=== PATIENT | female | born 1990 ===

== ENCOUNTER 2017-01-08 14:26 | Emergency (ER) | payer MEDICAID, OTHER ==
[2017-01-08 15:16] VITALS: BMI 35.5
[2017-01-08 15:37] LABS: RBC URINE 1 /hpf (0-3); URINE BILIRUBIN NEGATIVE (NEGATIVE); URINE BLOOD NEGATIVE (NEGATIVE); URINE COLOR Yellow (YELLOW); URINE GLUCOSE (UA) NORMAL (Normal); URINE KETONE NEGATIVE (NEGATIVE); URINE LEUKOCYTE ESTERASE NEG Leu/uL (Negative); URINE PROTEIN NEGATIVE (NEGATIVE); URINE UROBILINOGEN NORMAL mg/dL (0.2-1.0); WBC URINE 2 /hpf (0-5)
--- NOTE | 2017-01-08 15:51 | OBHP ---
Datetime: 01/08/2017 15:47 IP Adm Impression: , intrauterine IP Admit Plan: Discharge home Admit Comment, IP Provider: at 27+weeks came with c/o ctxs started at work every 30 min for 1 m in, no ctxs now, no vb, lof,+fm. no dysuria. obhx 1 x pmh de med pnv all nkda psh de soch den ve closed ua neg toco no ctxs a/p at 27weeks r/o ctxs dc home ptl given po hyrtion f/u in clinic Pelvic Type - PN: Adequate Extremities - PN: Normal Abdomen - PN: Normal Back - PN: Normal Breast - PN: Normal Lungs - PN: Normal Heart - PN: Normal Thyroid - PN: Normal Neurologic - PN: Normal HEENT - PN: Normal General - PN: Normal FHR - Baseline A Provider: 130 Contraction Comments Provider: none Comments, ACOG Physical Exam: gravid,non tender ext no edema,no calf ten EGA AdmitDate IP: 27.2 Vital Signs Provider: Reviewed; Within Normal Limits IP Chief Complaint: Uterine contractions NICHD Variability Prov Fetus A: Moderate 6-25bpm NICHD Accel Fetus A IP Provider: 10X10 FHR Category Provider Fetus A: Category I Dilatation, Provider: 0 Effacement, Provider: 0 Station, Provider: -3 Genitourinary Exam: Normal DTRs - PN: Normal
--- NOTE | 2017-01-08 15:56 | OBDCSUM ---
Datetime: 01/08/2017 15:50 Discharged to, Provider: Home Follow up at, Provider: Er[facility] Disch Instr Activity: Normal activity Disch Instr Diet: Regular Discharge Time: 01/08/2017 15:52 Follow up in weeks, Provider: clinic Disch Activity Restrictions: No exercising Discharge Comment, Provider: dc home ptl given po hyrtion f/u in clinic Discharge Diagnosis Prov Other: 27wee nst
[2017-01-08 22:23] VITALS: BP 123/59; PULSE 96; RESP 18; TEMP 98.5; O2SAT 99
== END 2017-01-08 15:57 | disposition home or self-care (01) ==
LOC: C.EROB 14:26
DX: O47.02 False labor before 37 completed weeks of gestation, second trimester (principal); Z3A.27 27 weeks gestation of pregnancy

== ENCOUNTER 2017-01-22 07:17 | Emergency (ER) | payer OTHER ==
[2017-01-22] MEDS ORDERED: Dextrose 5%/Lactated Ringer's 1,000 ML IV SCH (07:45)
[2017-01-22 09:20] LABS: BASO % 0.3 % (0.0-2.0); EOS % 0.2 % (0.0-4.0); HEMATOCRIT 34.7 % (34.0-47.0); LYMPH # 0.7 K/uL (1.0-4.3); LYMPH % 4.2 % (20.0-40.0); MEAN CELL VOLUME 93.5 fL (81.0-99.0); MEAN CORPUSCULAR HEMOGLOBIN 31.3 pg (27.0-31.0); MEAN CORPUSCULAR HGB CONC 33.5 g/dL (33.0-37.0); MEAN PLATELET VOLUME 8.6 fL (7.2-11.7); MONO # 0.5 K/uL (0.0-0.8); MONO % 3.1 % (0.0-10.0); PLATELET COUNT 326 K/uL (130-400); WHITE BLOOD COUNT 17.6 K/uL (4.8-10.8)
[2017-01-22 09:25] LABS: RBC URINE 4 /hpf (0-3); URINE BACTERIA RARE (<OCC); URINE BILIRUBIN NEGATIVE (NEGATIVE); URINE BLOOD NEGATIVE (NEGATIVE); URINE COLOR Amber (YELLOW); URINE GLUCOSE (UA) NORMAL (Normal); URINE KETONE 2+ mg/dL (NEGATIVE); URINE LEUKOCYTE ESTERASE TRACE Leu/uL (Negative); URINE PROTEIN 1+ mg/dL (NEGATIVE); URINE UROBILINOGEN NORMAL mg/dL (0.2-1.0); WBC URINE 5 /hpf (0-5)
[2017-01-22 09:30] LABS: CHLORIDE 104 mmol/L (98-107); SODIUM 140 mmol/L (132-148)
[2017-01-22 09:32] LABS: AMYLASE 62 U/L (30-110); GFR AFRICAN-AMERICAN > 60
[2017-01-22 09:33] LABS: ALB/GLOB RATIO 0.9 (1.0-2.1); ALKALINE PHOSPHATASE 137 U/L (38-126); ALT/SGPT 70 U/L (9-52); AST/SGOT 39 U/L (14-36); BILIRUBIN,TOTAL 0.9 mg/dL (0.2-1.3); BLOOD UREA NITROGEN 6 mg/dL (7-17); CALCIUM 9.2 mg/dl (8.6-10.4); CARBON DIOXIDE 19 mmol/L (22-30); GLUCOSE,RANDOM 92 mg/dL (65-105)
[2017-01-22 09:35] LABS: POTASSIUM 3.6 mmol/L (3.6-5.2)
[2017-01-22 09:52] LABS: NEUTROPHIL 88 % (50-75); TOTAL CELLS COUNTED 100
[2017-01-22 16:26] VITALS: BP 120/66; PULSE 101; RESP 18; TEMP 99.7
--- NOTE | 2017-01-23 01:02 | OBHP ---
Datetime: 01/22/2017 09:56 IP Adm Impression: , intrauterine ; No Active Labor IP Chief Complaint Other: nausea and vomiting IP Admit Plan: Observation/Evaluation; Discharge home Admit Comment, IP Provider: Patient is a 26 y.o. , LMP unsure, AMBER 04/07/17, EGA 29w 2d, c/o [place] vomiting since 0030 hours, 24 hours. Ate burkinan food the night before. (+) AFM; denies LOF, VB , Ctx/abdominal pain. issues: [facility] - no issues P Ob: 2010, x 1, female, 6lb 14oz, [facility] 2013, CS x 1, male, 8lb 13oz, [facility]; no GDM; no complications. 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 Age 18, (+) chlamydia PMH: Borderline HTN - never on meds PSH: C/S Allergies: doxycycline = rash Meds: PNV Soc Hx: former tobacco use: 1 pack lasted 4 days, on and off [place]; quit a few years ago - her daughter asked her to. Denies illicit drug or EtOH use. Lives with her 2 childre n; has a roomate. FOB not involved. Fam Hx: Mother - homicide. Father alive 48 y.o. no med issue. (+) fam h/o Breast cance r/ HTN P.E.: as above. Mildy obese in obvious discomfort. Awake, alert, oriented to time, person and pl hoang. Pleasant and cooperative Assessment: 26 y.o. P2, 29w 2d, acute gastroenteritis from food ingestion. Patient states shehas eaten from this etablishment "all the time"; but it was much later at night than her usual. Categor y 1 tracing. Clinically stble. Plan: 1) IVFs: D5LR 2) CBC, comp, lipase, amylase, U/A, UDS 3) zofran 4) Observe Addendum: after approximately 90 minutes of observation, and after receiving xofran, no vomiting a nd feels a bit better. Labs reviewed - noted for elevated WBC; AST/ALT - all of which represent acute phsae responses. Assessment: 26 y.o. P2, 29w 2d, acute gastroenteritis from food ingestion - no further vomiting. Patient counseled on modified BRAT diet; drink gatorade and /or coconut water; and to avoid greasy, f ried foods; outside cooked foods. Clinically stable. Plan: 1) discharge home 2) zofran 4 mg p.o. every 8 hours, PRN 3) keep scheduled appointment in approximately 2 weeks Pelvic Type - PN: Not Done Extremities - PN: Normal Abdomen - PN: Normal Back - PN: Normal Breast - PN: Not Done Lungs - PN: Normal Heart - PN: Normal Thyroid - PN: Not Done Neurologic - PN: Normal HEENT - PN: Normal General - PN: Normal FHR - Baseline A Provider: 150 Contraction Comments Provider: none Comments, ACOG Physical Exam: Abdomen: Gravid. Soft. Non tender in all quadrants All other systems reviewed; as per HPI Gestation - Est Wks by US: 29w 2d EGA AdmitDate IP: 29.2 IP Chief Complaint: Other NICHD Variability Prov Fetus A: Moderate 6-25bpm NICHD Accel Fetus A IP Provider: 15X15 FHR Category Provider Fetus A: Category I NICHD Decel Fetus A IP Provider: None Dilatation, Provider: deferred Genitourinary Exam: Not Done DTRs - PN: Not Done
== END 2017-01-22 09:42 | disposition home or self-care (01) ==
LOC: C.EROB 07:17
DX: O26.893 Other specified pregnancy related conditions, third trimester (principal); K52.9 Noninfective gastroenteritis and colitis, unspecified; Z3A.29 29 weeks gestation of pregnancy
CPT/HCPCS: 80053; 80324; 80345; 80346; 80349; 80353; 80358; 80361; 81001; 82150; 83690; 83992; 85025; 96374; 99282; J2405; J7120

== ENCOUNTER 2017-03-14 15:21 | Emergency (ER) | payer OTHER ==
[2017-03-14] MEDS ORDERED: Lactated Ringer's 1,000 ML IV ONE (15:36)
[2017-03-14 16:01] LABS: BASO % 0.2 % (0.0-2.0); EOS % 0.3 % (0.0-4.0); HEMATOCRIT 30.9 % (34.0-47.0); LYMPH # 1.1 K/uL (1.0-4.3); LYMPH % 6.6 % (20.0-40.0); MEAN CORPUSCULAR HEMOGLOBIN 29.3 pg (27.0-31.0); MEAN CORPUSCULAR HGB CONC 33.5 g/dL (33.0-37.0); MONO % 6.1 % (0.0-10.0); PLATELET COUNT 321 K/uL (130-400); RED CELL DISTRIBUTION WIDTH 14.3 % (11.5-14.5); WHITE BLOOD COUNT 16.5 K/uL (4.8-10.8)
[2017-03-14 16:02] LABS: MEAN CELL VOLUME 87.7 fL (81.0-99.0)
[2017-03-14 16:08] LABS: CHLORIDE 100 mmol/L (98-107)
[2017-03-14 16:09] LABS: POTASSIUM 3.8 mmol/L (3.6-5.2); SODIUM 131 mmol/L (132-148)
[2017-03-14 16:11] LABS: ALB/GLOB RATIO 0.9 (1.0-2.1); ALKALINE PHOSPHATASE 199 U/L (38-126); ALT/SGPT 37 U/L (9-52); AST/SGOT 29 U/L (14-36); BILIRUBIN,TOTAL 0.7 mg/dL (0.2-1.3); BLOOD UREA NITROGEN 6 mg/dL (7-17); CARBON DIOXIDE 16 mmol/L (22-30); GFR AFRICAN-AMERICAN > 60; TOTAL PROTEIN 7.4 g/dL (6.3-8.3)
[2017-03-14 16:12] LABS: CALCIUM 9.2 mg/dl (8.6-10.4); GLUCOSE,RANDOM 66 mg/dL (65-105); RBC URINE 1 /hpf (0-3); URINE BACTERIA RARE (<OCC); URINE BILIRUBIN NEGATIVE (NEGATIVE); URINE BLOOD NEGATIVE (NEGATIVE); URINE COLOR Yellow (YELLOW); URINE GLUCOSE (UA) NORMAL (Normal); URINE KETONE TRACE mg/dL (NEGATIVE); URINE LEUKOCYTE ESTERASE 1+ Leu/uL (Negative); URINE PROTEIN NEGATIVE (NEGATIVE); URINE UROBILINOGEN NORMAL mg/dL (0.2-1.0)
[2017-03-14 16:18] LABS: WBC URINE 20 /hpf (0-5)
[2017-03-14 16:42] LABS: EOSINOPHIL 1 % (0-4); LARGE PLATELETS PRESENT; NEUTROPHIL 86 % (50-75); TOTAL CELLS COUNTED 100
[2017-03-14 19:13] LABS: URINE HYALINE CAST >20 /lpf (0-2)
--- NOTE | 2017-03-14 20:47 | OBHP ---
Datetime: 03/14/2017 17:23 IP Adm Impression: , intrauterine IP Chief Complaint Other: body aches IP Admit Plan: Observation/Evaluation; Discharge home Admit Comment, IP Provider: chief compalint-body aches HPI Patient is a 26 y.o. , LMP unsure, AMBER 04/07/17, EGA 36w 4d, c/o body aches since morning .Patient states that she felt body aches and [place] djoint pain when she woke up in the morning tiday.she went to work but the discomfort contnued and sh was feeling weak.She therafter came to hospital from work. issues: [facility] - no issues P Ob: 2010, x 1, female, 6lb 14oz, [facility] 2013, CS x 1, male, 8lb 13oz, [facility]; no GDM; no complications. 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 Age 18, (+) chlamydia PMH: Borderline HTN - never on meds PSH: C/S Allergies: doxycycline = rash Meds: PNV Soc Hx: former tobacco use: 1 pack lasted 4 days, on and off since [place]; quit a few years ago - her daughter asked her to. Denies illicit drug or EtOH use. Lives with her 2 childre n; has a roomate. FOB not involved. Fam Hx: Mother - homicide. Father alive 48 y.o. no med issue. (+) fam h/o Breast cance r/ HTN Exam see exam secton A/P 26 y/o at 36.4 wga with body acehs and joint pain -iv fluids -check labs -flu swab -recheck cervix -tylenol 650mg 8.42 pm UA with LE, wbc, and epithelial cells wbc 16 Flu swab neg for influenza A and B Patient given iv fluids and she feels better patient gievn 2 grams of ampicillin cervix check twice and unchanged also given 1 shot of terbutaline 0.25 mg once. patient feels better and no longer feels pain in her joins or stomack or back Patient discharged home ptl,pprom, bleeding and abruption precautions given Pelvic Type - PN: Adequate Extremities - PN: Normal Abdomen - PN: Normal Back - PN: Normal Breast - PN: Not Done Lungs - PN: Normal Heart - PN: Normal Thyroid - PN: Normal Neurologic - PN: Normal HEENT - PN: Normal General - PN: Normal Contraction Comments Provider: monyt Gestation - Est Wks by US: 36.4 EGA AdmitDate IP: 36.4 Vital Signs Provider: Reviewed; Within Normal Limits IP Chief Complaint: Other FHR Category Provider Fetus A: Category I Dilatation, Provider: 1 Genitourinary Exam: Normal DTRs - PN: Normal
[2017-03-15 01:38] VITALS: BP 112/51; PULSE 137; O2SAT 99
== END 2017-03-14 21:00 | disposition home or self-care (01) ==
LOC: C.EROB 15:21
DX: O26.893 Other specified pregnancy related conditions, third trimester (principal); M25.50 Pain in unspecified joint; Z3A.36 36 weeks gestation of pregnancy
CPT/HCPCS: 80053; 81001; 85025; 87804; 96365; 99282; J0290; J3105; J7050; J7120

== ENCOUNTER 2017-03-30 16:25 | Inpatient (IN) | payer OTHER ==
[2017-03-30] MEDS ORDERED: Lactated Ringer's 1,000 ML IV SCH ×2 (17:00→17:45)
[2017-03-30] MEDS ORDERED: Sodium Citrate/Citric Acid 15 ml Sol PO ONE (17:37)
[2017-03-30] MEDS ORDERED: cefOXitin IV 2 gm in Dextrose 2 GM/50 ML BAG IVPB ONE ×2 (17:37→18:03)
[2017-03-30 17:52] LABS: BASO % 0.2 % (0.0-2.0); EOS # 0.1 K/uL (0.0-0.7); EOS % 0.5 % (0.0-4.0); HEMATOCRIT 30.8 % (34.0-47.0); LYMPH # 2.7 K/uL (1.0-4.3); LYMPH % 16.8 % (20.0-40.0); MEAN CELL VOLUME 86.3 fL (81.0-99.0); MEAN CORPUSCULAR HEMOGLOBIN 28.9 pg (27.0-31.0); MEAN CORPUSCULAR HGB CONC 33.5 g/dL (33.0-37.0); MEAN PLATELET VOLUME 8.1 fL (7.2-11.7); MONO # 1.1 K/uL (0.0-0.8); MONO % 6.8 % (0.0-10.0); NRBC % 0.1 % (0.0-2.0); RED CELL DISTRIBUTION WIDTH 15.3 % (11.5-14.5); WHITE BLOOD COUNT 16.3 K/uL (4.8-10.8)
--- NOTE | 2017-03-30 17:54 | OBADHP ---
Datetime: 03/30/2017 16:52 Admit Comment, IP Provider: Patient is a 27 year old at 38w6d AMBER 04/07/17 presents to L+D fo r contractions that started at 9:30am. Patient states that contractions are regular and have gotten s tronger. Last ate at 10am. Admits to recent intercourse, denies trauma. Endorses +FM, denies LOF, VB. Issues: Previous C/S x 1 UDS + THC and opiates Trichomonas positive - treated OB Hx: 1. 2010 VAVD at term, Female , 6lbs 14oz, no complications 2. 2013 PLTCD 2/2 arrest of descent, Male infant, 8lb 13oz, no complications 3. 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 07/01/16 [place]: 11 x reg x 5 days Hx of Ovarian cysts Denies hx of abnormal paps, uterine fibroids Hx of Chlamydia at age 18, treated Allergies: Doxycycline- rash Medications: PNV Medical Hx: Borderline HTN on no medications Surgical Hx: C/S x 1 Social Hx: Denies alcohol, drug use; former tobacco use: 1 pack lasted 4 days, on and off since af er of daughter; quit a few years ago; works at [employer] [place]; lives with 2 children Family Hx: Mother - at age 24 by homicide; Father - age 48 healthy; Grandmother - breast CA PE: See above A/P: 27 year old at 38w5d, previous C/S presents for uterine contractions 1. Stable, afebrile 2. CEFM and TOCO 3. Admission labs: CBC, T+S, CMP, RPR, UA, HIV 4. Cefoxitin 2gm, bicitra, pepcid 5. Anesthesia notified 6. Plan for OR 7. Discussed with Attending Mariaa Viera DO PGY-1 dr shepherd agrees Comments, ACOG Physical Exam: VSS Gen: AAOx3 Abd: Soft, gravid Ext: +1 pitting edema; no calf tenderness SVE: closed/thick/high EFM: 135, moderate variability, +accels, -decels TOCO: q6min IP Hx Assessment: The History has been Reviewed and is Current IP Chief Complaint: Uterine contractions EGA AdmitDate IP: 38.6 IP Adm Impression: Term, intrauterine IP Admit Plan: Admit to unit; Initiate Section protocol Datetime: 03/14/2017 17:23 IP Chief Complaint Other: body aches Pelvic Type - PN: Adequate Extremities - PN: Normal Abdomen - PN: Normal Back - PN: Normal Breast - PN: Not Done Lungs - PN: Normal Heart - PN: Normal Thyroid - PN: Normal Neurologic - PN: Normal HEENT - PN: Normal General - PN: Normal Contraction Comments Provider: irregula Gestation - Est Wks by US: 36.4 Vital Signs Provider: Reviewed; Within Normal Limits FHR Category Provider Fetus A: Category I Dilatation, Provider: 1 Genitourinary Exam: Normal DTRs - PN: Normal Datetime: 01/22/2017 09:56 FHR - Baseline A Provider: 150 NICHD Variability Prov Fetus A: Moderate 6-25bpm NICHD Accel Fetus A IP Provider: 15X15 NICHD Decel Fetus A IP Provider: None Datetime: 01/08/2017 15:47 Effacement, Provider: 0 Station, Provider: -3
[2017-03-30 18:02] LABS: CHLORIDE 104 mmol/L (98-107)
[2017-03-30 18:03] LABS: POTASSIUM 3.6 mmol/L (3.6-5.2); SODIUM 134 mmol/L (132-148)
[2017-03-30] MEDS ORDERED: Sodium Citrate/Citric Acid 15 ml Sol ONE (18:03)
[2017-03-30] MEDS ORDERED: Oxytocin 10 Units/ml Inj ONE (18:03)
[2017-03-30] MEDS ORDERED: Oxytocin 20 units in LR 2,000 ML IV ONE (18:04)
[2017-03-30 18:05] LABS: ALB/GLOB RATIO 0.8 (1.0-2.1); ALKALINE PHOSPHATASE 227 U/L (38-126); AST/SGOT 37 U/L (14-36); BILIRUBIN,TOTAL 0.4 mg/dL (0.2-1.3); BLOOD UREA NITROGEN 6 mg/dL (7-17); CARBON DIOXIDE 17 mmol/L (22-30); GFR AFRICAN-AMERICAN > 60; GLUCOSE,RANDOM 78 mg/dL (65-105)
[2017-03-30 18:06] LABS: ALT/SGPT 40 U/L (9-52); CALCIUM 9.7 mg/dl (8.6-10.4)
[2017-03-30 18:19] LABS: RBC URINE 1 /hpf (0-3); URINE BACTERIA RARE (<OCC); URINE BILIRUBIN NEGATIVE (NEGATIVE); URINE BLOOD NEGATIVE (NEGATIVE); URINE COLOR Yellow (YELLOW); URINE GLUCOSE (UA) NORMAL (Normal); URINE KETONE NEGATIVE (NEGATIVE); URINE LEUKOCYTE ESTERASE NEG Leu/uL (Negative); URINE PROTEIN NEGATIVE (NEGATIVE); URINE UROBILINOGEN NORMAL mg/dL (0.2-1.0); WBC URINE 2 /hpf (0-5)
[2017-03-30] MEDS ORDERED: Morphine 1 mg/ml preservative-free Inj(Duramorph) ONE (18:30)
[2017-03-30] MEDS ORDERED: ePHEDrine 50 mg/ml Inj ONE (18:30)
--- NOTE | 2017-03-30 19:20 | PCM.SURG1 ---
Surgeon's Initial Post Op Note - Surgeon's Notes Surgeon: dr shepherd Software Specialist: dr daniels/dr major Type of Anesthesia: Spinal Anesthesia Administered By: dr nelson Pre-Operative Diagnosis: 27 yr at 38+weeks previous c/s in pain Operative Findings: see the op[ reprt Post-Operative Diagnosis: same Operation Performed: repeat section Specimen/Specimens Removed: cord gas. cord bloood Estimated Blood Loss: EBL {In ML}: 700 Blood Products Given: N/A Drains Used: No Drains Post-Op Condition: Good Date of Surgery/Procedure: 03/30/17 Time of Surgery/Procedure: 20:00
--- NOTE | 2017-03-30 19:24 | OBDS ---
DELIVERY PERSONNEL Delivery Doctor: Gaviota Alvarado MD Scrub Nurse: Kaylen Salazar OBT Field Service Manager: Shani Rodriguez RN Anesthesiologist: Gaviota Canela MD Resident: Bella Ham DO/Judy Viera Do MATERNAL INFORMATION Delivery Anesthesia: Spinal Estimated Blood Loss (ml): 700 Placenta Cultured: Yes Maternal Complications: None Provider Comments: baby deliverd in [place]. end clean cord gas send no com appgar 02/07 LABOR SUMMARY EDC: 04/07/2017 00:00 No. Babies in Womb: 1 Attempted: No Labor Anesthesia: None LABOR INFORMATION Reason for Induction: Not Applicable Oxytocin: N/A Group B Beta Strep: Negative Antibiotics # of Doses: 1 Antibiotics Time of Last Dose: 1830 Steroids Given: None Reason Steroids Not Administered: Not Applicable MEMBRANES Membranes Rupture Method: Artificial Amniotic Fluid Color: Clear Amniotic Fluid Amount: Moderate Amniotic Fluid Odor: Normal STAGES OF LABOR Stage 3 hrs: 0 Stage 3 min: 1 BABY A INFORMATION Infant Delivery Date/Time: 03/30/2017 18:53 Method of Delivery: Born in Route : No : N/A Forceps: N/A Vacuum Extraction: N/A Shoulder Dystocia : No SHOULDER DYSTOCIA BABY A Delivery Date/Time: 03/30/2017 18:53 PRESENTATION/POSITION BABY A Presentation: Cephalic Cephalic Presentation: Vertex Vertex Position: Left Occipital Anterior Breech Presentation: N/A PLACENTA INFORMATION BABY A Placenta Delivery Time : 03/30/2017 18:54 Placenta Method of Delivery: Expressed Placenta Status: Delivered SCORES BABY A Heart Rate 1 min: >100 bpm Resp Effort 1 min: Good Cry Reflex Irritability 1 min: Cough or Sneeze or Pulls Away Muscle Tone 1 min: Active Motion Color 1 min: Body Trosky, Extremities Blue Resuscitation Effort 1 min: Tactile Stimulation SCORE 1 MIN: 9 Heart Rate 5 min: >100 bpm Resp Effort 5 min: Good Cry Reflex Irritability 5 min: Cough or Sneeze or Pulls Away Muscle Tone 5 min: Active Motion Color 5 min: Body Trosky, Extremities Blue SCORE 5 MIN: 9 INFANT INFORMATION BABY A Gestational Age at Delivery: 38.6 Gestational Status: Term Outcome : Liveborn Condition : Stable Sex: Male IDENTIFICATION/MEDS BABY A ID Band Number: [id number] ID Band Location: Left Leg; Left Arm Sensor Applied: Yes Sensor Number: [id number] Sensor Location : Cord Clamp Vitamin K Given : Not Given Erythromycin Given: Not Given WEIGHT/LENGTH BABY A Birthweight (gms): 3540 Infant Weight (lb): 7 Infant Weight (oz): 13 Infant Length Inches: 19.45 Length cms: 49.4 CORD INFORMATION BABY A No. Cord Vessels: 3 Nuchal Cord : N/A Nuchal Cord Other: N/A True Knot: N/A Cord Blood Taken: Yes Banking/Donate Info: N/A
[2017-03-30] MEDS: Simethicone 80 mg Chewtab PO SCH (23:34)
[2017-03-31 08:44] LABS: HEMATOCRIT 27.5 % (34.0-47.0); MEAN CELL VOLUME 85.8 fL (81.0-99.0); MEAN CORPUSCULAR HEMOGLOBIN 28.3 pg (27.0-31.0); MEAN PLATELET VOLUME 8.3 fL (7.2-11.7); RED CELL DISTRIBUTION WIDTH 15.3 % (11.5-14.5); WHITE BLOOD COUNT 12.7 K/uL (4.8-10.8)
[2017-03-31] MEDS: Oxycodone/Acetaminophen 5/325 mg Tab PO PRN ×3 (10:19→21:50)
[2017-03-31] MEDS: Simethicone 80 mg Chewtab PO SCH ×4 (10:19→21:47)
[2017-03-31] MEDS ORDERED: Bisacodyl 5mg EC Tab PO ONE (18:04)
--- NOTE | 2017-03-31 19:24 | OBPPN ---
Datetime: 03/31/2017 07:46 PP Pain Prov: Within normal limits PP Nausea Prov: Denies PP Flatus Prov: No PP BM Prov: No PP Heart Prov: Normal PP Lungs Prov: Normal PP Abdomen/Uterus Prov: Normal PP CVA Tenderness Prov: Normal PP C/S Incision Prov: Normal PP Progress Prov: Normal PP Impression Prov: Normal progression PP Plan Prov: Continue present management PP Progress Note Prov: Patient seen and examined at bedside. Per nursing no acute events overnight. Patient is doing well, pain is controlled. Lochia is mild. Not yet ambulaing, tao in draining yello w urine. Tolerating ice chips. Breast feeding. Denies headaches, dizziness, cp, palpitations, sob, ur inary symptoms. Denies passing flatus or BM. VS: 130/78 100 98.9 I/O: 1000/600 Gen: AAOx3, NAD CV: RRR Lungs: CTA B/L Abd: Soft, appropriately tender, fundus firm below umbilicus, dressing c/d/i Ext: SCDs in place, no clubbing, cyanosis, edema; no calf tenderness Labs: 16.3>10.3/30.8<407 F/U am CBC O positive Rubella immune A/P: 27 year old at 38w6d S/P RLTCD POD#1 1. Stable, afebrile 2. Pain control - motrin and percocet prn 3. F/U am CBC 4. Remove tao, f/u voiding trial 5. Advance diet as tolerated 6. Encourage ambulation once tao removed, encourage hydration 7. Encourage breast feeding, ISS use 8. SW referral pending - THC use in 9. Male infant - declined circ 10. Continue routine care 11. Plan d/w attending Mariaa Viera DO PGY-1 Patient examined.agre with resident exam, assessment and plan Vital Signs Provider PP: Reviewed
[2017-04-01] MEDS: Oxycodone/Acetaminophen 5/325 mg Tab PO PRN ×4 (08:19→21:57)
[2017-04-01] MEDS: Simethicone 80 mg Chewtab PO SCH ×4 (09:18→21:59)
--- NOTE | 2017-04-01 12:49 | OBPPN ---
Datetime: 04/01/2017 08:05 PP Pain Prov: Within normal limits PP Nausea Prov: Denies PP Flatus Prov: Yes PP BM Prov: No PP Heart Prov: Normal PP Lungs Prov: Normal PP Abdomen/Uterus Prov: Normal PP Lochia Prov: Normal PP Extremities Prov: Normal PP C/S Incision Prov: Normal PP Comments Phys Exam Prov: Abdomen: Soft, appropriately tender, fundus firm below umbilicus, dressi ng C/D/I PP Impression Prov: Normal progression PP Plan Prov: Continue present management PP Progress Note Prov: Patient seen and examined at bedside. Patient reports that she is doing well and pain is well-controlled. Patient reports mild lochia. Patient is ambulating, tolerating diet, uri nating without difficulty and passing flatus. Patient denies nausea, vomiting, fever, chills, bowel m ovement and calf tenderness. Patient is breast feeding. VS: Temp: 97.7, BP: 111/62 and HR: 91 Gen: AAOx3, NAD CV: RRR, Normal S1, S2 Lungs: CTA B/L Abd: Soft, appropriately tender, fundus firm below umbilicus, dressing C/D/I Ext: no clubbing, cyanosis or edema. No calf tenderness Labs: 16.3>10.3/30.8<407 12.7>9.1/27.5<287 O positive Rubella immune A/P: 27 year old at 38w6d S/P RLTCD POD#2 1. Stable, afebrile 2. Pain control - motrin and percocet prn 3. Encourage ambulation and hydration 4. Encourage breast feeding, ISS use 5. Continue routine care 6. Anticipate discharge tomorrow 7. Plans discussed with attending Leticia Ham, PGY-1, DO Dr Alvarado saw the pateint and agrees Vital Signs Provider PP: Reviewed; Within Normal Limits
[2017-04-01] MEDS ORDERED: Bisacodyl 5mg EC Tab PO ONE (20:59)
[2017-04-02] MEDS ORDERED: Oxycodone/Acetaminophen 5/325 mg Tab ONE (06:24)
[2017-04-02] MEDS: Oxycodone/Acetaminophen 5/325 mg Tab PO PRN (06:25)
[2017-04-02 08:55] VITALS: RESP 18
[2017-04-02] MEDS: Simethicone 80 mg Chewtab PO SCH (09:10)
[2017-04-02] MEDS ORDERED: Influenza Vaccine 60 mcg/0.5 mL SYR (4YR UP) IM ONE (10:00)
--- NOTE | 2017-04-02 13:12 | OBPPN ---
Datetime: 04/02/2017 07:08 PP Pain Prov: Within normal limits PP Heart Prov: Normal PP Lungs Prov: Normal PP Abdomen/Uterus Prov: Normal PP Lochia Prov: Normal PP Extremities Prov: Normal PP Comments Phys Exam Prov: Abdomen: Fundus is firm and below the umbilicus PP Impression Prov: Normal progression PP Plan Prov: Discharge PP Progress Note Prov: Patient seen and examined at bedside. Patient reports that she is doing well and pain is well-controlled. Patient reports mild lochia. Patient is ambulating, tolerating diet, uri nating without difficulty and passing flatus. Patient denies nausea, vomiting, fever, chills, bowel m ovement and calf tenderness. Patient is breast feeding. VS: Temp: 98.0, BP: 104/65 and HR: 89 Gen: AAOx3, NAD CV: RRR, Normal S1, S2 Lungs: CTA B/L Abd: Soft, appropriately tender, fundus firm below umbilicus, dressing C/D/I and corky in place Ext: no clubbing, cyanosis or edema. No calf tenderness Labs: 16.3>10.3/30.8<407 12.7>9.1/27.5<287 O positive Rubella immune A/P: 27 year old at 38w6d S/P RLTCD POD#3 1. Stable, afebrile 2. Pain well-controlled 3. Encourage ambulation and hydration 4. Encourage breast feeding 5. Discharge tomorrow: Pelvic rest and nothing per vagina for 6-8 weeeks, no heavy lifting, f/u in the clinic in a week for corky removal, OTC motrin and tylenol for pain control 6. Plans discussed with attending Leticia Ham, PGY-1, DO Attending Note: Patient seen and evaluated by me with Resident. I agree with the above as docume nted. Patient unsure about contraception. Clinically stable. Plan: - discharge as above - also, will provide percocet for moderate pain, (see prescription) Vital Signs Provider PP: Reviewed; Within Normal Limits
--- NOTE | 2017-04-02 13:17 | OBDCSUM ---
Datetime: 04/02/2017 08:45 Discharged to, Provider: Home Follow up at, Provider: vasu Disch Instr Activity: Normal activity Disch Instr Diet: Regular Discharge Instructions, Provider: Routine instructions given Discharge Diagnosis, Provider: Term Delivered Discharge Time: 04/02/2017 12:00 Follow up in weeks, Provider: 04-06-17 Disch Referrals: [facility] Contraception discussed, Prov: Yes Disch Activity Restrictions: No lifting; Minimize stair-climbing; No sexual activity; Nothing in vag toma - Ruso, tampons, douche Discharge Diagnosis Prov Other: Status post repeat C/S Anemia contraception counseling Contraception after Delivery: Undecided Datetime: 03/14/2017 20:45 Disch Instr Activity: Normal activity; May be up to bathroom; May be up for meals; May Shower Discharge Instructions, Provider: Routine instructions given Discharge Diagnosis, Provider: Term Delivered Disch Activity Restrictions: No lifting; Minimize stair-climbing; No sexual activity; Nothing in vag toma - Ruso, tampons, douche Discharge Comment, Provider: Continue hydration and ambulation Pelvic rest and nothing per vagina for 6-8 weeeks, No heavy lifting f/u in the clinic in a week for corky removal OTC motrin and tylenol for pain control Discharge Diagnosis Prov Other: Discharge Diagnosis: Repeat Contraception after Delivery: Undecided
[2017-04-02 18:01] VITALS: BP 100/64; PULSE 59; TEMP 98.4; O2SAT 99
== END 2017-04-02 13:00 | disposition home or self-care (01) | DRG 370 ==
LOC: C.EROB 16:25 → C.4D 17:39 → C.4M 22:15
PROVIDERS: ADMIT Obstetrics & Gynecology; ATTEND Obstetrics & Gynecology
PROC: 10D00Z1 Extraction of Products of Conception, Low, Open Approach (ICD-10-PCS; principal; 2017-03-30)
DX: O34.211 Maternal care for low transverse scar from previous cesarean delivery (principal); O99.324 Drug use complicating childbirth; F12.90 Cannabis use, unspecified, uncomplicated; O75.82 Onset (spontaneous) of labor after 37 completed weeks of gestation but before 39 completed weeks gestation, with delivery by (planned) cesarean section; Z23 Encounter for immunization; Z3A.38 38 weeks gestation of pregnancy; Z37.0 Single live birth

== ENCOUNTER 2017-10-03 11:11 | Emergency (ER) | payer OTHER ==
[2017-10-03 11:17] VITALS: BMI 32.1
[2017-10-03 11:23] VITALS: RESP 18; TEMP 98.2
--- NOTE | 2017-10-03 11:28 | C.PDOC ---
History Of Present Illness [id number] female presents to ED for complaints of onset headache to right TMJ area that began [employer]ARM [employer]. Patient describes pain as sudden onset and localized throbbing. Patient reports taking Tylenol at 9AM with no relief. Denies trauma, nausea, vomiting, other associated symptoms or Hx of migraine. Patient also states last headache was 03/2017. 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 SUDDEN ONSET, LOCALIZED THROBBING. NO RELIEF W TYLENOL @ 0900. NO TRAUMA, NV. DENIES HO MIGRAINE, LAST ORTIZ 03/2017. DENIES OTHER ASSOC SX. EXAM MOD DIST NONTOXIC HEENT NO PHOTOPHOBIA; +TEND R TMJ; +CLICKING R TMJ W MANDIBLE ROM. R EAR NEG; NECK SUPPLE NEURO NO FOCAL DEF REMAINDER NEG Time Seen by Provider: 10/03/17 11:27 Chief Complaint (Nursing): Headache History Per: Patient History/Exam Limitations: no limitations Onset/Duration Of Symptoms: Hrs Current Symptoms Are (Timing): Still Present Quality: Other (localized throbbing) Preceeding Symptoms: None Recent travel outside of the [place]: No Past Medical History Reviewed: Historical Data, Nursing Documentation, Vital Signs Vital Signs: Last Vital Signs Temp 98.2 F 10/03/17 11:20 Pulse 47 L 10/03/17 12:55 Resp 18 10/03/17 12:55 BP 118/75 10/03/17 12:55 Pulse Ox 100 10/03/17 12:55 - Medical History PMH: HTN ("BOARDERLINE") Surgical History: - [facility] EXTRACTION OF POC, LOW CERVICAL, OPEN APPROACH (03/30/17) Family History: States: Unknown Family Hx - Social History Hx Alcohol Use: No Hx Substance Use: No - Immunization History Hx Tetanus Toxoid Vaccination: No Hx Influenza Vaccination: Yes Hx Pneumococcal Vaccination: No Review Of Systems Constitutional: Negative for: Fever, Chills, Other (trauma) Gastrointestinal: Negative for: Nausea, Vomiting Skin: Negative for: Rash Neurological: Positive for: Headache (to right TMJ area). Negative for: Weakness, Numbness Physical Exam - Physical Exam Appears: Non-toxic, Other (Moderate distress) Skin: Warm, Dry Head: Tenderness (right TMJ; Positive clicking right TMJ with mandible ROM ) Eye(s): bilateral: Normal Inspection, PERRL, EOMI, Other (No photophobia) Ear(s): Right: Normal Oral Mucosa: Moist Neck: Supple Chest: Symmetrical, No Tenderness Cardiovascular: Rhythm Regular Respiratory: No Decreased Breath Sounds, No Rales, No Rhonchi, No Wheezing Gastrointestinal/Abdominal: Soft, No Tenderness Neurological/Psych: Oriented x3, Normal Speech, Normal Cognition, Other (no focal deficit ) Gait: Steady ED Course And Treatment - Laboratory Results Result Diagrams: 10/03/17 11:37 10/03/17 11:37 O2 Sat by Pulse Oximetry: 99 (RA) Pulse Ox Interpretation: Normal - CT Scan/US CT Head Other Rad Studies (CT/US): Read By Radiologist, Radiology Report Reviewed CT/US Interpretation: PROCEDURE: CT HEAD WITHOUT CONTRAST. HISTORY: Headache R TMJ. COMPARISON: None available. TECHNIQUE: Axial computed tomography images were obtained through the head/brain without intravenous contrast. Radiation dose: Total exam DLP = 1107.82 mGy-cm. This CT exam was performed using one or more of the following dose reduction techniques: Automated exposure control, adjustment of the mA and/or kV according to patient size, and/ or use of iterative reconstruction technique. FINDINGS: HEMORRHAGE: No intracranial hemorrhage. BRAIN: No mass effect or edema. No atrophy or chronic microvascular ischemic changes. VENTRICLES: No obstructive hydrocephalus. CALVARIUM: No acute calvarial fracture seen. Note made of a few tiny radiopaque densities within mid and left parasagittal posterior superior parietal scalp possibly representing a calcifications the tiny opaque foreign bodies not excluded. PARANASAL SINUSES: Unremarkable as visualized. No significant inflammatory changes. MASTOID AIR CELLS: Unremarkable as visualized. No inflammatory changes. OTHER FINDINGS: None. IMPRESSION: No acute intracranial hemorrhage. Progress - Re-Evaluation Re-evaluation Note: 10/03/17 12:41 IMPROVED COMPARED TO PRIOR. CO RESIDUAL BURNING TO R TMJ AREA. VSS NEURO INTACT 10/03/17 13:36 ORTIZ RESOLVED. NEURO INTACT ASYMPT - Data Reviewed Data Reviewed: Diagnostic imaging Medical Decision Making Medical Decision Making: Ordered Head CT and blood work. Administered Compazine, Imitrex, and Toradol. Disposition Counseled Patient/Family Regarding: Studies Performed, Diagnosis, Need For Followup - Disposition Referrals: YOUR,PMD [Other] Disposition: HOME/ ROUTINE Disposition Time: 13:37 Condition: IMPROVED Instructions: Headache, Adult (DC) Forms: [facility] (Angolan), Work Excuse - Clinical Impression Clinical Impression: Headache - Scribe Statement The provider has reviewed the documentation as recorded by the Davidibe Paulino Chavez All medical record entries made by the Davidibneisha were at my direction and personally dictated by me. I have reviewed the chart and agree that the record accurately reflects my personal performance of the history, physical exam, medical decision making, and the department course for this patient. I have also personally directed, reviewed, and agree with the discharge instructions and disposition.
[2017-10-03 11:40] LABS: BASO # 0.1 K/uL (0.0-0.2); BASO % 0.6 % (0.0-2.0); EOS # 0.1 K/uL (0.0-0.7); EOS % 0.6 % (0.0-4.0); HEMOGLOBIN 12.1 g/dL (11.0-16.0); LYMPH # 2.7 K/uL (1.0-4.3); LYMPH % 28.8 % (20.0-40.0); MEAN CELL VOLUME 92.7 fL (81.0-99.0); MEAN CORPUSCULAR HEMOGLOBIN 32.3 pg (27.0-31.0); MEAN CORPUSCULAR HGB CONC 34.9 g/dL (33.0-37.0); MEAN PLATELET VOLUME 8.4 fL (7.2-11.7); MONO # 0.4 K/uL (0.0-0.8); MONO % 4.4 % (0.0-10.0); NEUT # 6.2 K/uL (1.8-7.0); NEUT % 65.6 % (50.0-75.0); RBC 3.75 Mil/uL (3.80-5.20); RED CELL DISTRIBUTION WIDTH 14.7 % (11.5-14.5); WHITE BLOOD COUNT 9.4 K/uL (4.8-10.8)
[2017-10-03 11:52] LABS: CALCIUM 8.9 mg/dl (8.6-10.4); GFR AFRICAN-AMERICAN > 60; GFR NON-AFRICAN AMERICAN > 60
[2017-10-03 11:54] LABS: BLOOD UREA NITROGEN 11 mg/dL (7-17)
--- NOTE | 2017-10-03 12:24 | CT ---
PROCEDURE: CT HEAD WITHOUT CONTRAST. HISTORY: Headache R TMJ COMPARISON: None available. TECHNIQUE: Axial computed tomography images were obtained through the head/brain without intravenous contrast. Radiation dose: Total exam DLP = 1107.82 mGy-cm. This CT exam was performed using one or more of the following dose reduction techniques: Automated exposure control, adjustment of the mA and/or kV according to patient size, and/or use of iterative reconstruction technique. FINDINGS: HEMORRHAGE: No intracranial hemorrhage. BRAIN: No mass effect or edema. No atrophy or chronic microvascular ischemic changes. VENTRICLES: No obstructive hydrocephalus. CALVARIUM: No acute calvarial fracture seen. Note made of a few tiny radiopaque densities within mid and left parasagittal posterior superior parietal scalp possibly representing a calcifications the tiny opaque foreign bodies not excluded PARANASAL SINUSES: Unremarkable as visualized. No significant inflammatory changes. MASTOID AIR CELLS: Unremarkable as visualized. No inflammatory changes. OTHER FINDINGS: None. IMPRESSION: No acute intracranial hemorrhage.
[2017-10-03 12:56] VITALS: BP 118/75; PULSE 47
[2017-10-03 13:37] VITALS: O2SAT 99
== END 2017-10-03 13:51 | disposition home or self-care (01) ==
LOC: C.ER 11:11
DX: R51 Headache (principal)
CPT/HCPCS: 70450; 80048; 82948; 85025; 96372; 99285; J0780; J1885; J3030

== ENCOUNTER 2018-01-03 13:48 | Emergency (ER) | payer OTHER ==
[2018-01-03 13:49] VITALS: BMI 32.1
[2018-01-03 14:03] VITALS: O2SAT 100
[2018-01-03 14:44] LABS: BASO % 0.3 % (0.0-2.0); EOS # 0.1 K/uL (0.0-0.7); EOS % 1.1 % (0.0-4.0); HEMOGLOBIN 13.2 g/dL (11.0-16.0); LYMPH # 2.9 K/uL (1.0-4.3); LYMPH % 27.5 % (20.0-40.0); MEAN CELL VOLUME 94.2 fL (81.0-99.0); MEAN CORPUSCULAR HEMOGLOBIN 32.4 pg (27.0-31.0); MEAN CORPUSCULAR HGB CONC 34.4 g/dL (33.0-37.0); MEAN PLATELET VOLUME 7.8 fL (7.2-11.7); MONO # 0.6 K/uL (0.0-0.8); MONO % 5.6 % (0.0-10.0); NEUT # 6.8 K/uL (1.8-7.0); NEUT % 65.5 % (50.0-75.0); RBC 4.06 Mil/uL (3.80-5.20); RED CELL DISTRIBUTION WIDTH 13.8 % (11.5-14.5); WHITE BLOOD COUNT 10.4 K/uL (4.8-10.8)
[2018-01-03 14:51] LABS: SQUAMOUS EPITHIAL 4 /hpf (0-5); URINE BILIRUBIN NEGATIVE (NEGATIVE); URINE BLOOD 1+ (NEGATIVE); URINE CLARITY Clear (Clear); URINE COLOR Straw (YELLOW); URINE GLUCOSE (UA) NORMAL (Normal); URINE LEUKOCYTE ESTERASE TRACE Leu/uL (Negative); URINE PROTEIN NEGATIVE (NEGATIVE); URINE UROBILINOGEN NORMAL mg/dL (0.2-1.0)
[2018-01-03 15:07] LABS: ALB/GLOB RATIO 1.4 (1.0-2.1); ALBUMIN 4.8 g/dL (3.5-5.0); CALCIUM 9.7 mg/dl (8.6-10.4); GFR AFRICAN-AMERICAN > 60; GFR NON-AFRICAN AMERICAN > 60
[2018-01-03 15:15] LABS: ALT/SGPT 43 U/L (9-52); AST/SGOT 34 U/L (14-36); BLOOD UREA NITROGEN 19 mg/dL (7-17)
--- NOTE | 2018-01-03 15:24 | C.PDOC ---
History Of Present Illness 27 y/o female presents to ED for evaluation of lower abdominal pain and vaginal spotting that started last night. Notes she had a positive home test 2 days ago. . Denies nausea, vomiting, or fever. Time Seen by Provider: 01/03/18 14:03 Chief Complaint (Nursing): Female Genitourinary History Per: Patient History/Exam Limitations: no limitations Past Medical History Reviewed: Historical Data, Nursing Documentation, Vital Signs Vital Signs: Last Vital Signs Temp 98 F 01/03/18 13:59 Pulse 80 01/03/18 13:59 Resp 16 01/03/18 13:59 BP 150/94 H 01/03/18 13:59 Pulse Ox 100 01/03/18 15:26 - Medical History PMH: HTN Surgical History: - [facility] EXTRACTION OF POC, LOW CERVICAL, OPEN APPROACH (03/30/17) Family History: States: Unknown Family Hx - Social History Hx Alcohol Use: No Hx Substance Use: No - Immunization History Hx Tetanus Toxoid Vaccination: No Hx Influenza Vaccination: Yes Hx Pneumococcal Vaccination: No Review Of Systems Except As Marked, All Systems Reviewed And Found Negative. Constitutional: Negative for: Fever, Chills Cardiovascular: Negative for: Chest Pain Respiratory: Negative for: Shortness of Breath Gastrointestinal: Positive for: Abdominal Pain. Negative for: Nausea, Vomiting , Diarrhea Genitourinary: Positive for: Vaginal Bleeding (vaginal spotting). Negative for : Dysuria, Frequency, Hematuria Musculoskeletal: Negative for: Back Pain Physical Exam - Physical Exam Appears: Non-toxic, No Acute Distress Skin: Normal Color, Warm, Dry Head: Atraumatic, Normacephalic Eye(s): bilateral: Normal Inspection Oral Mucosa: Moist Neck: Normal ROM, Supple Cardiovascular: Rhythm Regular, No Murmur Respiratory: Normal Breath Sounds, No Rales, No Rhonchi, No Wheezing Gastrointestinal/Abdominal: Soft, No Tenderness, No Guarding, No Rebound Back: No CVA Tenderness Extremity: Normal ROM, No Deformity Neurological/Psych: Oriented x3, Normal Speech ED Course And Treatment - Laboratory Results Result Diagrams: 01/03/18 14:37 01/03/18 14:37 O2 Sat by Pulse Oximetry: 100 (RA) Pulse Ox Interpretation: Normal Medical Decision Making Medical Decision Making: Impression: Threatened miscarriage Plan: Blood work Urinalysis Pelvis ultrasound threatened miscarriage vs spont. will discharge home and advise follow up with ob/gy repeat u/s and bhcg Disposition Counseled Patient/Family Regarding: Studies Performed, Diagnosis, Need For Followup - Disposition Referrals: [facility] [Outside] Disposition: HOME/ ROUTINE Disposition Time: 16:28 Condition: STABLE Additional Instructions: follow up with your doctor or medical clinic within 2 days call to make an appointment continue your home medications return to ER if symptoms worsens or progress you will need repeat bhcg blood level and possible ultrasound Instructions: Threatened Miscarriage (DC) Forms: Gen Discharge Inst Kenyan, [employer] (Kenyan) Print Language: MONGOLIAN - Clinical Impression Clinical Impression: Threatened - Scribe Statement The provider has reviewed the documentation as recorded by the Scribe KP All medical record entries made by the Scribe were at my direction and personally dictated by me. I have reviewed the chart and agree that the record accurately reflects my personal performance of the history, physical exam, medical decision making, and the department course for this patient. I have also personally directed, reviewed, and agree with the discharge instructions and disposition.
--- NOTE | 2018-01-03 16:21 | US ---
Date of service: 01/03/2018 HISTORY: vaginal spotting COMPARISON: None available. TECHNIQUE: Transabdominal and transvaginal pelvic ultrasound was performed with longitudinal and transverse images submitted for interpretation. FINDINGS: UTERUS: Measures 11.0 x 4.2 x 5.4 cm. Uterus is mildly enlarged anteverted but without focal myometrial mass or the lesion associated. ENDOMETRIUM: Measures 12.2 mm in diameter. Trace fluid seen the endometrial cavity. CERVIX: A few tiny nabothian cysts are seen both anteriorly and posteriorly. RIGHT OVARY: Measures 3.0 x 2.4 x 2.9 cm. A likely complex collapsing cyst identified measure 1.4 x 1.7 x 1.7 Normal flow. LEFT OVARY: Measures 2.7 x 1.6 x 2.7 cm. No solid mass. Normal flow. FREE FLUID: No significant free fluid noted. OTHER FINDINGS: None. IMPRESSION: Creating follicle left ovary 1.7 cm greatest dimension. Trace fluid is seen in the endometrial cavity. Mildly enlarged uterus with nonfocal myometrium.
[2018-01-03 16:40] VITALS: BP 138/86; PULSE 77; RESP 18; TEMP 98.2
== END 2018-01-03 16:40 | disposition home or self-care (01) ==
LOC: C.ER 13:48
DX: O20.0 Threatened abortion (principal)

== ENCOUNTER 2018-01-06 11:44 | Emergency (ER) | payer OTHER ==
[2018-01-06 11:44] VITALS: BMI 32.1
--- NOTE | 2018-01-06 12:10 | C.PDOC ---
History Of Present Illness 27 y/o female presents to the ED with complaints of intermittent vaginal spotting and occasional abdominal cramping. LMP was 12/08, patient states she had a (+) home test last week. Of note patient was seen here in the ED 3 days ago, and had beta-HCG of 25 and sonogram done. States she was instructed to return for repeat beta-HCG today, as she has been unable to get appointment with her PARTITION SETTER. She describes having occasional cramping but no pain at this time. Patient is also having occasional vaginal spotting, but states she only notices when she wipes. Otherwise she denies any urinary frequency, dysuria, incontinence, back pain, or fever. Time Seen by Provider: 01/06/18 11:49 Chief Complaint (Nursing): Medical Clearance History Per: Patient History/Exam Limitations: no limitations Onset/Duration Of Symptoms: Days Current Symptoms Are (Timing): Still Present Past Medical History Reviewed: Historical Data, Nursing Documentation, Vital Signs Vital Signs: Last Vital Signs Temp 98.5 F 01/06/18 13:45 Pulse 72 01/06/18 13:45 Resp 16 01/06/18 13:45 BP 147/89 01/06/18 13:45 Pulse Ox 99 01/06/18 13:45 - Medical History PMH: HTN Surgical History: - [facility] Procedures EXTRACTION OF POC, LOW CERVICAL, OPEN APPROACH (03/30/17) Family History: States: Unknown Family Hx - Social History Hx Alcohol Use: No Hx Substance Use: No - Immunization History Hx Tetanus Toxoid Vaccination: No Hx Influenza Vaccination: Yes Hx Pneumococcal Vaccination: No Review Of Systems Constitutional: Negative for: Fever, Chills Gastrointestinal: Positive for: Abdominal Pain (cramping) Genitourinary: Positive for: Vaginal Bleeding. Negative for: Dysuria, Frequency , Incontinence Musculoskeletal: Negative for: Back Pain Physical Exam - Physical Exam Appears: No Acute Distress Skin: No Rash Head: Atraumatic, Normacephalic Eye(s): bilateral: PERRL, EOMI Oral Mucosa: Moist Neck: Supple Chest: No Tenderness Cardiovascular: Rhythm Regular, No Murmur Respiratory: Normal Breath Sounds, No Rales, No Rhonchi, No Wheezing Gastrointestinal/Abdominal: Bowel Sounds (Normoactive ), Soft, No Tenderness, No Distention Back: No CVA Tenderness Extremity: Normal ROM, No Calf Tenderness, No Swelling Neurological/Psych: Oriented x3, Normal Speech, Other (No gross focal deficit) ED Course And Treatment O2 Sat by Pulse Oximetry: 98 (RA) Pulse Ox Interpretation: Normal Medical Decision Making Medical Decision Making: Impression: 27 year old female here for repeat beta quant Plan: -- beta-HCG, quant 1330 pt with beta hcg 114, rising from 25 three days ago. pt has blood type O+. pt with no abdominal pain at this time, has occasinal spotting. 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 pt understands. Disposition Counseled Patient/Family Regarding: Studies Performed, Diagnosis, Need For Followup - Disposition Referrals: 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 Your beta hcg is 114 today, was 25 three days ago. You need to follow this to make sure it continues to rise. Return to ER for any heavy vaginal bleeding, abdominal pain or any other concern. 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 - Scribe Statement The provider has reviewed the documentation as recorded by the Scribe (Kaye Majano) All medical record entries made by the Scribe were at my direction and personally dictated by me. I have reviewed the chart and agree that the record accurately reflects my personal performance of the history, physical exam, medical decision making, and the department course for this patient. I have also personally directed, reviewed, and agree with the discharge instructions and disposition.
[2018-01-06 13:46] VITALS: BP 147/89; PULSE 72; RESP 16; TEMP 98.5
[2018-01-06 22:24] VITALS: O2SAT 98
== END 2018-01-06 13:46 | disposition home or self-care (01) ==
LOC: C.ER 11:44
DX: O20.0 Threatened abortion (principal)

== ENCOUNTER 2018-09-07 05:50 | Inpatient (IN) | payer OTHER ==
[2018-09-07 06:11] VITALS: BMI 38.4
[2018-09-07] MEDS ORDERED: Lactated Ringer's 1,000 ML IV ONE (06:19)
[2018-09-07] MEDS ORDERED: cefOXitin IV 2 gm in Dextrose 2 GM/50 ML BAG IVPB ONE ×2 (06:19→06:28)
[2018-09-07] MEDS ORDERED: Sodium Citrate/Citric Acid 15 ml Sol ONE (06:25)
[2018-09-07] MEDS ORDERED: Oxytocin 20 units in LR 2,000 ML IV ONE (06:26)
[2018-09-07] MEDS ORDERED: Oxytocin 10 Units/ml Inj ONE (06:28)
[2018-09-07 06:55] LABS: BASO # 0.1 K/uL (0.0-0.2); BASO % 0.6 % (0.0-2.0); EOS % 0.3 % (0.0-4.0); HEMOGLOBIN 10.8 g/dL (11.0-16.0); LYMPH # 1.7 K/uL (1.0-4.3); LYMPH % 16.7 % (20.0-40.0); MEAN CELL VOLUME 87.3 fL (81.0-99.0); MEAN CORPUSCULAR HEMOGLOBIN 28.8 pg (27.0-31.0); MEAN PLATELET VOLUME 8.5 fL (7.2-11.7); MONO # 0.7 K/uL (0.0-0.8); MONO % 6.8 % (0.0-10.0); NEUT # 7.6 K/uL (1.8-7.0); NEUT % 75.6 % (50.0-75.0); NRBC % 0.1 % (0.0-2.0); RBC 3.75 Mil/uL (3.80-5.20); RED CELL DISTRIBUTION WIDTH 16.5 % (11.5-14.5); WHITE BLOOD COUNT 10.1 K/uL (4.8-10.8)
[2018-09-07 07:12] LABS: ALB/GLOB RATIO 1.1 (1.0-2.1); ALBUMIN 3.7 g/dL (3.5-5.0); ALT/SGPT 36 U/L (9-52); AST/SGOT 49 U/L (14-36); BLOOD UREA NITROGEN 6 mg/dL (7-17); CALCIUM 9.3 mg/dl (8.6-10.4); GFR NON-AFRICAN AMERICAN > 60; URIC ACID 7.2 mg/dL (2.2-7.5)
--- NOTE | 2018-09-07 07:19 | OBADHP ---
Datetime: 09/07/2018 06:50 Admit Comment, IP Provider: 28 yo female with an IUP 39 weeks and here for elective repeat C/S. Pt requesting permanent sterilization. Elevated BP on admission and states that has been elevate d a couple of times in the clinic but denies any ORTIZ, Bv or EP. Admits to adequate FM and denies LOF, VB or VD. Admits to mild anemia but did not take Iron. Denies any other Antepartum condition. PMHX Negative PSHx C/S x 2, x 1 Meds PNV Allergies: Doxycycline Social: Denies x 3 PE See above A/P Term Previous C/S and for elective repeat C/S Multiparity and requesting Permanent sterilization Probable PIH/Asymptomatic Hx of Anemia Admit for C/S and BTL Labd and IV hydration done Pre-Op meds given including Meformin Procedure, risks and possible complications fully reviewed with patient and all of her questions were answered to her full satisfaction, Pt requested to proceed and signed the consent. Permanent sterilization consent reviewed with patient and aware of possible complications as well as a possible 2-3 women in a 1000 that may still get after the proposed surgery. Pt verbaliz ed understanding, requested to proceed and signed the consent Will proceed when OR and Anesthesia ready. Pelvic Type - PN: Adequate Extremities - PN: Normal Abdomen - PN: Normal Back - PN: Normal Breast - PN: Not Done Lungs - PN: Normal Heart - PN: Normal Thyroid - PN: Normal Neurologic - PN: Normal HEENT - PN: Normal General - PN: Normal Presentation-Admit: Vertex FHR - Baseline A Provider: 130 Membranes, Provider: Intact Contraction Comments Provider: Q 3-5 Gestation - Est Wks by US: 39.0 IP Hx Assessment: The History has been Reviewed and is Current Vital Signs Provider: Reviewed Vital Signs Provider Details: Elevated BP IP Chief Complaint: Scheduled Section NICHD Variability Prov Fetus A: Moderate 6-25bpm NICHD Accel Fetus A IP Provider: 10X10 FHR Category Provider Fetus A: Category I NICHD Decel Fetus A IP Provider: None Dilatation, Provider: 1 Effacement, Provider: 30 Station, Provider: -3 Genitourinary Exam: Normal DTRs - PN: Normal EGA AdmitDate IP: 39.0 IP Adm Impression: Term, intrauterine ; No Active Labor; Intact Membranes IP Admit Plan: Admit to unit; Initiate Section protocol
[2018-09-07] MEDS ORDERED: Sodium Citrate/Citric Acid 15 ml Sol PO ONE (07:21)
[2018-09-07] MEDS ORDERED: Morphine 1 mg/ml preservative-free Inj(Duramorph) ONE (07:32)
[2018-09-07] MEDS ORDERED: Phenylephrine 10 mg/ml Inj ONE (07:32)
[2018-09-07 07:36] LABS: SQUAMOUS EPITHIAL 8 /hpf (0-5); URINE BACTERIA MANY (<OCC); URINE BILIRUBIN NEGATIVE (NEGATIVE); URINE BLOOD NEGATIVE (NEGATIVE); URINE CLARITY Hazy (Clear); URINE COLOR Yellow (YELLOW); URINE GLUCOSE (UA) NORMAL (Normal); URINE LEUKOCYTE ESTERASE NEG Leu/uL (Negative); URINE PROTEIN NEGATIVE (NEGATIVE); URINE UROBILINOGEN NORMAL mg/dL (0.2-1.0)
--- NOTE | 2018-09-07 12:18 | OBDS ---
DELIVERY PERSONNEL Delivery Doctor: Matty Stinson DO Scrub Nurse: Leigh Azar Operational Meteorologist: ZOIE gonzalez Anesthesiologist: Dr Cannon Resident: Dr Miranda MATERNAL INFORMATION Delivery Anesthesia: Spinal Medications in Delivery: pitocin 40units added by anesthesia Estimated Blood Loss (ml): 600 Placenta Cultured: No Maternal Complications: None RN Comments: Hx anemia, borderline HTN, c/s x2 Provider Comments: Repeat LTC C/S with delivery of a viable female from YAMILE position and wit hout complications. Apgars 9_9, BW 8lbs, 12 oz. Lysis of multiple adhesions Bilateral Salpingectomy with Ligature and bilateral tubes, from [place] to fimbriated end, sent to Pathology. EBL 6 00 mls Cord blood and cord pH obtained and sent Placenta spontaneous delivered witn 3 vessel cord Pt and both tolerated the procedure well and remained in LDR in stable and satisfactory co ndition. Dr. Alvarez assisted throughout the entire procedure from beginning to end. Dr. Padilla, [place] Supervisor attended the [place] Dr. Miranda and Medical Student Marilia Rankin also present. LABOR SUMMARY EDC: 09/14/2018 00:00 No. Babies in Womb: 1 Attempted: No Labor Anesthesia: None LABOR INFORMATION Reason for Induction: Not Applicable Onset of Labor: 09/07/2018 04:30 Group B Beta Strep: Done, Result Unknown Steroids Given: None Reason Steroids Not Administered: Not Applicable MEMBRANES Membranes Rupture Method: Artificial Rupture of Membranes: 09/07/2018 08:13 Length of Rupture (hrs): 0.02 Amniotic Fluid Color: Clear STAGES OF LABOR Stage 3 hrs: 0 Stage 3 min: 2 Total Time in Labor hrs: 3 Total Time in Labor min: 46 CSECTION DELIVERY Primary Indication: Repeat Elective Other Primary Indication: c/s x2 Secondary Indication: Multiparity Other Secondary Indication: Requesting Permanent Sterilization CSection Urgency: Elective CSection Incidence: Repeat Labor: No Labor Elective: Elective CSection Incision: Lower Uterine Transverse Other Sterilization Procedure: Bilateral Salpingectomy with Ligature BABY A INFORMATION Infant Delivery Date/Time: 09/07/2018 08:14 Method of Delivery: Born in Route : No : N/A Forceps: N/A Vacuum Extraction: N/A Shoulder Dystocia : No SHOULDER DYSTOCIA BABY A Delivery Date/Time: 09/07/2018 08:14 PRESENTATION/POSITION BABY A Presentation: Cephalic Cephalic Presentation: Vertex Breech Presentation: N/A PLACENTA INFORMATION BABY A Placenta Delivery Time : 09/07/2018 08:16 Placenta Method of Delivery: Manual Removal Placenta Status: Delivered SCORES BABY A Heart Rate 1 min: >100 bpm Resp Effort 1 min: Good Cry Reflex Irritability 1 min: Cough or Sneeze or Pulls Away Muscle Tone 1 min: Active Motion Color 1 min: Body [place], Extremities Blue Resuscitation Effort 1 min: Tactile Stimulation SCORE 1 MIN: 9 Heart Rate 5 min: >100 bpm Resp Effort 5 min: Good Cry Reflex Irritability 5 min: Cough or Sneeze or Pulls Away Muscle Tone 5 min: Active Motion Color 5 min: Body [place], Extremities Blue Resuscitation Effort 5 min: Tactile Stimulation SCORE 5 MIN: 9 INFORMATION BABY A Gestational Age at Delivery: 39.0 Gestational Status: Term Outcome : Liveborn Infant Condition : Stable Infant Sex: Female IDENTIFICATION/MEDS BABY A ID Band Number: [id number] ID Band Location: Right Arm; Left Leg Sensor Applied: Yes Sensor Number: [id number] Sensor Location : Cord Clamp Vitamin K Given : Aquamephyton 1 mg IM; Left Thigh Erythromycin Given: Given Both Eyes WEIGHT/LENGTH BABY A Infant Birthweight (gms): 3975 Weight (lb): 8 Infant Weight (oz): 12 Infant Length Inches: 19.50 Infant Length cms: 49.5 CORD INFORMATION BABY A No. Cord Vessels: 3 Nuchal Cord : N/A Cord Blood Taken: Yes Suction: Mouth; Nose ASSESSMENT BABY A Infant Complications: None Physical Findings at Delivery: Within Normal Limits Respirations: Appears Normal Inspector Watch Train/ALS Called : No Care By: Dr Padilla Transferred To: Remains with Mother (Annotations: Data stored by CPN on behalf of user)
[2018-09-07] MEDS: Prenatal Multivit/Folic Acid/Iron Tab PO SCH (18:01)
[2018-09-08] MEDS: Oxycodone/Acetaminophen 5/325 mg Tab PO PRN ×3 (08:08→19:56)
[2018-09-08 08:35] LABS: HEMOGLOBIN 9.6 g/dL (11.0-16.0); MEAN CELL VOLUME 87.4 fL (81.0-99.0); MEAN CORPUSCULAR HEMOGLOBIN 29.4 pg (27.0-31.0); MEAN CORPUSCULAR HGB CONC 33.6 g/dL (33.0-37.0); MEAN PLATELET VOLUME 8.2 fL (7.2-11.7); RBC 3.28 Mil/uL (3.80-5.20); WHITE BLOOD COUNT 11.8 K/uL (4.8-10.8)
[2018-09-08] MEDS: Prenatal Multivit/Folic Acid/Iron Tab PO SCH (09:32)
[2018-09-09] MEDS: Oxycodone/Acetaminophen 5/325 mg Tab PO PRN (00:03)
[2018-09-09] MEDS ORDERED: Oxycodone/Acetaminophen 5/325 mg Tab PO PRN (00:31)
--- NOTE | 2018-09-09 00:42 | OBPPN ---
Datetime: 09/08/2018 16:51 PP Nausea Prov: Denies PP Flatus Prov: Yes PP BM Prov: Yes PP Breasts Prov: Not Done PP Heart Prov: Normal PP Lungs Prov: Normal PP Abdomen/Uterus Prov: Normal PP Lochia Prov: Normal PP Vulva/Perineum Prov: Not Done PP CVA Tenderness Prov: Normal PP Extremities Prov: Normal PP Progress Prov: Normal PP Comments Phys Exam Prov: Gen: NAD, NON TOXIC Cardio: RRR, No murmur Resp: CTABL, Good air movement Abd: Soft, nontender, LE: 2+ DP BL; 1+ non pitting edema BL Neuro: Awake Alert Oriented x 3 Psych: Normal affect/ Normal Mood PP Impression Prov: Normal progression PP Plan Prov: Continue present management PP Progress Note Prov: 28F s/p elective w/ BL tubal ligation on 09/07 w/ delivery of 39wk IUP Patient was seen and examined this morning at bedside No acute events reported overnight Patient denies any N/V/D/C reported good bowel movement, tolerating diet well, ambulates within th e room without difficulty, well hydrated. Patient is exclusively breast feeding; tolerating breast fe eds well. Bleeding is improving; patient reports she does not soak through pads VSS, Lab work reviewed; stable Exam within normal limits A/P: 28F s/p elective w/ BL tubal ligation Post Day #1 Continue post management: Analgesia Stool softeners Encourage Ambulation Encourage Hydration Encourage breast feeding
[2018-09-09] MEDS: Prenatal Multivit/Folic Acid/Iron Tab PO SCH (09:03)
[2018-09-09 11:51] LABS: HEMOGLOBIN 9.7 g/dL (11.0-16.0); MEAN CELL VOLUME 88.5 fL (81.0-99.0); MEAN CORPUSCULAR HEMOGLOBIN 29.4 pg (27.0-31.0); MEAN CORPUSCULAR HGB CONC 33.2 g/dL (33.0-37.0); RBC 3.3 Mil/uL (3.80-5.20); RED CELL DISTRIBUTION WIDTH 17.2 % (11.5-14.5); WHITE BLOOD COUNT 11.4 K/uL (4.8-10.8)
--- NOTE | 2018-09-09 18:28 | OBPPN ---
Datetime: 09/09/2018 11:45 PP Nausea Prov: Denies PP Flatus Prov: No PP BM Prov: No PP Breasts Prov: Not Done PP Heart Prov: Normal PP Lungs Prov: Normal PP Abdomen/Uterus Prov: Normal PP Lochia Prov: Normal PP Vulva/Perineum Prov: Not Done PP CVA Tenderness Prov: Normal PP Extremities Prov: Normal PP C/S Incision Prov: Normal PP Progress Prov: Normal PP Comments Phys Exam Prov: Gen: NAD, NON TOXIC Cardio: RRR, No murmur Resp: CTABL, Good air movement Abd: Soft, nontender, lower abdominal incision w/ corky; no discharge, erythema/edema, mild loch ia appreciated; Uterus is palpated 2 finger breadths above umbilicus LE: 2+ DP BL; 1+ non pitting edema BL Neuro: Awake Alert Oriented x 3 Psych: Normal affect/ Normal Mood PP Impression Prov: Normal progression PP Plan Prov: Continue present management PP Progress Note Prov: 28F POD# 2 s/p repeat elective c/section w/ BL tubal ligation Patient was seen and examined at bedside this morning; no acute events reported overnight; Patient complains of abdominal pain however she reports her pain is improving at this time; does not complai n of any discharge at surgical incision site. She is Q1H ambulates within the room w/o difficulty; reports good hydration. Denies BM / Flatus; urinating well. Denies fevers/chills cp sob n/v. Vitals reviewed - stable Labs reviewed - pending CBC this AM A/P: 28F POD# 2 s/p repeat elective csection w/ BL tubal ligation Continue current management C/w senna po hs C/w Colace 100 bid C/w Motrin 600 Q6H PRN pain c/w percocet Q4H prn pain Encourage breast feeding Encourage Ambulation Encourage hydration Patient was seen examined and discussed w/ attending Dr. Rahul Rowland DO PGY1 - Internal Medicine Fish Processing Supervisor Atrtending Note: patient seen, evaluated and examined with the resident. I agree with the above as documented. post H/H POD#2 9.7/29.7. Rh(+).Patient is refusing to ambulate in thte hallways " I'm not comfortable". Patient is clinically stable.
[2018-09-10 09:04] VITALS: BP 139/80; O2SAT 99
[2018-09-10] MEDS: Prenatal Multivit/Folic Acid/Iron Tab PO SCH (10:22)
--- NOTE | 2018-09-10 13:05 | OBDCSUM ---
Datetime: 09/10/2018 11:06 Discharged to, Provider: Home Follow up at, Provider: [place] Disch Instr Activity: Normal activity Disch Instr Diet: Regular Discharge Diet restrict Prov: postop precautions Discharge Instructions, Provider: Routine instructions given Discharge Diagnosis, Provider: Term Delivered Discharge Time: 09/10/2018 11:13 Follow up in weeks, Provider: 09/15/18 Disch Referrals: None Disch Activity Restrictions: No exercising; No lifting; No driving; No sexual activity; Nothing in v agina - [place], tampons, douche Discharge Comment, Provider: Patient seen and examined at bedside. Per patient no acute overnight ev ents. Pain is moderate at a 7/10 and controlled on Percocet/ Motrin. Has not required percocet in 24 hours. Pain is located at the incision site. She also complains of some upper back pain that she attr ibutes to milk engorgement. She admits to vomiting once this morning due to pain. Lochia is minimal. Patient is out of bed to chair, ambulating around her room, and tolerating a regular diet. She had a bowel movement last night and is urinating on her own. She is breast feeding. Denies fever, chills, d izziness, chest pain, shortness of breath, nausea, and claudication. VS: 124/76 67 97.5; wnl Gen: NAD, pleasant, conversant CV: RRR, No murmur Lungs: CTA b/l, no wheezes, rales, or rhonchi Abd: soft, nondistended, mildly tender to palpation in lower right and left quadrant, fundus 1FB b elow umbilicus, incision c/d/I Ext: no clubbing, cyanosis, edema Labs: 11.4>9.7/29.3<369 O+, Rubella immune A/P: 28 y/o female post-op day 3 s/p repeat and b/l tubal ligation. -Hans, afebrile -Pain controlled with Motrin and Percocet -Encourage ambulation, hydration, -Continue normal diet -DC Instructions as below Please take all medications as prescribed Please follow up with [facility] within 2 weeks Please allow pelvic rest for 8 weeks No heavy lifting for 8 weeks Please adequately hydrate yourself Please Move around/ walk around Keep Incision Site clean and dry If you have any questions please call/ follow up with your VIDEO PHOTOGRAPHER If you experience any concerning symptoms please go to the nearest emergency department immediatel y obh addendum: pt seen _ examind by me with resident dr dueñas. pt states +am episode of scant emesis otherwise t olerating reg diet. as above. Patient was seen, examined, and discussed w/ attending physician Dr. Damico Discharge Diagnosis Prov Other: Repeat elective C/S of term w/ BL tubal ligation Contraception after Delivery: Tubal Ligation
[2018-09-10 21:32] VITALS: PULSE 89; RESP 20; TEMP 98.4
== END 2018-09-10 14:30 | disposition home or self-care (01) | DRG 371 ==
LOC: C.4D 05:50 → C.4LDOR 09:43 → C.4D 09:44 → C.4M 12:16
PROVIDERS: ADMIT Obstetrics & Gynecology; ATTEND Obstetrics & Gynecology
PROC: 10D00Z1 Extraction of Products of Conception, Low, Open Approach (ICD-10-PCS; principal; 2018-09-07)
PROC: 0UB70ZZ Excision of Bilateral Fallopian Tubes, Open Approach (ICD-10-PCS; 2018-09-07)
DX: O34.211 Maternal care for low transverse scar from previous cesarean delivery (principal); Z3A.39 39 weeks gestation of pregnancy; Z30.2 Encounter for sterilization; R03.0 Elevated blood-pressure reading, without diagnosis of hypertension; Z37.0 Single live birth